=== PATIENT | female | born 1985 | race Caucasian/White ===

== ENCOUNTER 2022-11-27 05:26 | Inpatient (IN) | payer BC ==
[~2022-11-27] VITALS: Ht 176.5 cm; Wt 82.6 kg
--- NOTE | 2022-11-27 07:49 | PR ---
[facility] [address] [facility] [place], [place] [address] Signed Progress Notes IP Datetime Report Generated by CPN: 11/27/2022 07:49 PROGRESS NOTES: [id number] Impression: Normal Progression of Labor Procedures: Sterile Vag Exam Plan: Continue Present Management VITAL SIGNS: [id number] Vital Signs: Reviewed; Within Normal Limits EXAM: [id number] Dilatation: 8.0 Effacement: 100 Station: 1 Contractions: q 2 min MEMBRANES: [id number] Amniotic Fluid Color: Clear Comments: Progressing well. Doing OK with nitrous so far. FETUS A: [id number] FHR Baseline: 150 Variability: Minimal - >Undetectable to <=5bpm Accelerations: None Decelerations: None FHR Category: Category II Presentation: Vertex FETUS B: [id number] Signing Physician: Stacy Martinez MD Copies: ~ *Electronically Signed* 11/27/22 0749 STACY MARTINEZ MD PATIENT NAME: TRUPTI PUENTES PROGRESS NOTE DATE OF : 87 PHYSICIAN: STACY MARTINEZ MD RPT #: [id number] REPORT IS CONFIDENTIAL AND NOT TO BE RELEASED WITHOUT AUTHORIZATION
--- NOTE | 2022-11-28 08:51 | PR ---
[facility] [address] [facility] [place], [place] [address] Signed PP Progress Notes Datetime Report Generated by CPTamera: 11/28/2022 08:51 SUBJECTIVE: [id number] Pain: Within Normal Limits Nausea/Vomiting: Denies Vital Signs: [id number] Vital Signs: Reviewed; Within Normal Limits Cardiovascular: Not Done Respiratory: Not Done Abdomen/Uterus: Abnormal Lochia: Normal Vulva/Perineum: Not Done Breasts: Not Done CVA Tenderness: Not Done Extremities: Normal Incision: Not Applicable Progress: Normal Exam Comments: Fundus firm, NT @ U-2. H/H 10.6/32.1, WBC 8.9, plat 165k IMPRESSION/PLAN/PROCEDURES: [id number] Impression: Normal Progression Plan: Continue Present Management Procedures: None Progress Notes: Doing well. Will continue observation today with probable D/C in am. Signing Physician: Stacy Martinez MD Copies: ~ *Electronically Signed* 11/28/22 0851 STACY MARTINEZ MD PATIENT NAME: TRUPTI PUENTES JHONNY PROGRESS NOTE DATE OF : 87 PHYSICIAN: STACY MARTINEZ MD RPT #: [id number] REPORT IS CONFIDENTIAL AND NOT TO BE RELEASED WITHOUT AUTHORIZATION
--- NOTE | 2022-11-29 08:23 | PR ---
[facility] [address] [facility] [place], [place] [address] Signed PP Progress Notes Datetime Report Generated by CPN: 11/29/2022 08:23 SUBJECTIVE: [id number] Pain: Within Normal Limits Pain Comments: Got some sleep yesterday Nausea/Vomiting: Denies Vital Signs: [id number] Vital Signs: Reviewed; Within Normal Limits Cardiovascular: Not Done Respiratory: Not Done Abdomen/Uterus: Abnormal Lochia: Normal Vulva/Perineum: Not Done Breasts: Not Done CVA Tenderness: Not Done Extremities: Normal Incision: Not Applicable Progress: Normal Exam Comments: Fundus firm, NT @ U-2 IMPRESSION/PLAN/PROCEDURES: [id number] Impression: Normal Progression Plan: Discharge Procedures: None Progress Notes: Doing well. She is ready for D/C. Signing Physician: Stacy Martinez MD Copies: ~ *Electronically Signed* 11/29/22822 STACY MARTINEZ MD PATIENT NAME: TRUPTI PUENTES PROGRESS NOTE DATE OF : [birth year] PHYSICIAN: STACY MARTINEZ MD RPT #: [id number] REPORT IS CONFIDENTIAL AND NOT TO BE RELEASED WITHOUT AUTHORIZATION
== END 2022-11-29 15:35 | disposition home or self-care (01) | DRG 807 ==
LOC: FBCO 05:26 → FBC 05:44
PROVIDERS: ADMIT Obstetrics & Gynecology; ATTEND Obstetrics & Gynecology
PROC: 10E0XZZ Delivery of Products of Conception, External Approach (ICD-10-PCS; principal; 2022-11-27)
PROC: 0KQM0ZZ Repair Perineum Muscle, Open Approach (ICD-10-PCS; 2022-11-27)
DX: O42.013 Preterm premature rupture of membranes, onset of labor within 24 hours of rupture, third trimester (principal); Z37.0 Single live birth; Z3A.36 36 weeks gestation of pregnancy; Z67.40 Type O blood, Rh positive; Z20.822 Contact with and (suspected) exposure to COVID-19; O70.1 Second degree perineal laceration during delivery; O75.89 Other specified complications of labor and delivery; Z87.891 Personal history of nicotine dependence
CPT/HCPCS: 36415; 85027; 86850; 86900; 86901; 87502; 87653; A9270; J2210; J2540; J2590; J7121; U0003